=== PATIENT | female | born 1955 | race African-American/Black ===

== ENCOUNTER 2024-06-19 08:00 | Emergency (ER) | payer MEDICARE, MEDICAID ==
[~2024-06-19] VITALS: Ht 165.1 cm; Wt 122.4 kg
[2024-06-19 08:10] VITALS: TEMP 98; O2SAT 97
[2024-06-19 08:54] LABS: BASOPHILS % 0.5 % (0.0-2.0); EOSINOPHILS % 1.7 % (0.0-5.0); HEMATOCRIT. 36.5 % (36.0-48.0); HEMOGLOBIN. 11.3 g/dL (12.0-16.0); LYMPHOCYTES % 31.9 % (20.0-50.0); MEAN CORPUSCULAR HEMOGLOBIN 26.4 pg (28.0-32.0); MEAN CORPUSCULAR HGB CONC 30.9 g/dL (31.0-37.0); MEAN CORPUSCULAR VOLUME 85.3 fL (81.0-99.0); MEAN PLATELET VOLUME 8.1 fl (7.4-10.4); MONOCYTES % 5.2 % (2.0-8.0); NEUTROPHILS % 60.7 % (40.0-76.0); PLATELET 329 x1000/uL (130-400); RED BLOOD CELL COUNT 4.27 mill/uL (4.2-5.4); RED CELL DISTRIBUTION WIDTH 17.3 % (11.6-14.6); WHITE BLOOD COUNT 9.3 x1000/uL (4.5-11.0)
[2024-06-19 08:59] LABS: POTASSIUM 4.1 mEq/L (3.5-5.1)
[2024-06-19 09:00] LABS: CALCIUM 9.4 mg/dL (8.7-10.4)
[2024-06-19 09:05] LABS: CREATININE 1.5 mg/dL (0.6-1.0)
[2024-06-19] MEDS: SODIUM CHLORIDE 0.9% 1,000 ML IV ONE (09:23)
[2024-06-19] MEDS ORDERED: FLUC150T46 MT (10:24)
[2024-06-19 11:17] VITALS: BP 122/78; PULSE 72; RESP 14; O2SAT 99
== END 2024-06-19 11:27 | disposition left against medical advice (07) ==
LOC: ER 08:00 → CANBEDREQ 11:13 → ER 11:27
DX: E11.65 Type 2 diabetes mellitus with hyperglycemia (principal); B37.9 Candidiasis, unspecified; I11.0 Hypertensive heart disease with heart failure; I50.9 Heart failure, unspecified; I10 Essential (primary) hypertension; Z88.0 Allergy status to penicillin
CPT/HCPCS: 99291; 96360; 80048; 82010; 82962; 83605; 83930; 85025; 85610; 87040; 36415; 84145; J7030